=== PATIENT | male | born 1935 | race Hispanic/Latino ===

== ENCOUNTER 2020-06-30 09:09 | Day surgery (SDC) | payer MEDICARE ==
[2020-06-30] MEDS ORDERED: ASPIRIN EC 325 MG TAB PO SCH (10:30)
[2020-06-30 10:41] LABS: Basophils % (Auto) 0.5 % (0.0-1.8); Eosinophils # (Auto) 0.2 K/mm3 (0.0-0.4); Eosinophils % (Auto) 3.3 % (0.0-4.3); Hematocrit 36.4 % (35.5-45.6); Hemoglobin 12.2 gm/dl (11.8-15.2); Lymphocytes # (Auto) 0.6 K/mm3 (1.2-5.4); Lymphocytes % (Auto) 9.8 % (13.4-35.0); Mean Corpuscular HGB Conc 33 % (32-34); Mean Corpuscular Volume 89 fl (84-94); Monocytes # (Auto) 0.7 K/mm3 (0.0-0.8); Platelet Count 269 K/mm3 (140-440); Red Blood Count 4.08 M/mm3 (3.65-5.03); Red Cell Distribution Width 15.5 % (13.2-15.2)
[2020-06-30 10:52] LABS: INR 1.09 (0.87-1.13)
[2020-06-30 11:02] LABS: BUN/Creatinine Ratio 16; Blood Urea Nitrogen 16 mg/dL (9-20); Hemolysis Index 3
[2020-06-30] MEDS ORDERED: HEPARIN/NS 5000 UNIT/500ML 1,000 ML IR ONE (11:17)
[2020-06-30] MEDS: SODIUM CHLORIDE 0.9% 500 ML 500 ML IV SCH ×2 (11:17→11:49)
[2020-06-30] MEDS: MIDAZOLAM 2 MG/2 ML INJ ONE ×2 (11:47→12:02)
[2020-06-30] MEDS: fentaNYL 100 MCG/2 ML INJ ONE ×2 (11:47→12:02)
[2020-06-30] MEDS: LIDOCAINE (2%) 20 MG/1 ML VIAL 20 ML MDV INFILTRATI ONE ×2 (11:47→12:03)
[2020-06-30] MEDS: HEPARIN 10,000 UNITS/10 ML VIAL ONE ×2 (11:48→12:06)
[2020-06-30] MEDS: NITROGLYCERIN SYRINGE 3 ML ONE ×2 (11:49→12:06)
[2020-06-30] MEDS: VERAPAMIL 5 MG/2 ML INJ ONE ×2 (11:49→12:06)
--- NOTE | 2020-06-30 12:39 | Cardiac Catherization Report ---
REASON FOR PROCEDURE: Coronary artery disease, exertional chest pain and dyspnea, preoperative urological surgery. PROCEDURES: 1. Left heart catheterization. 2. Selective left and right coronary angiography. 3. Left ventricular angiography. 4. Sedation time start 12:02, end 12:21. DESCRIPTION OF PROCEDURE: The patient was prepped and draped in a sterile fashion after informed consent. The right radial cath site was prepped and draped after a negative Richard's test. The right radial artery was entered using Seldinger technique followed by placement of a 6-Stateless hydrophilic sheath. Routine radial cocktail was administered via the sheath. Selective left and right coronary angiography was performed using a #3.5 left Keiko and a #4 right Keiko. A pigtail catheter was used for left ventricular angiography. The catheters were removed, sheath removed and hemostasis achieved using a TR band. The patient was returned to the postprocedure unit in stable condition. There were no complications. FINDINGS: HEMODYNAMICS: Left ventricular end-diastolic pressure was 19, following coronary angiography. Ascending aortic pressure was 161/71. There was no significant pressure gradient on pullback across the aortic valve. CORONARY ANGIOGRAPHY: Left main coronary artery was free of significant disease. The left anterior descending artery contained a long segment of disease in its proximal to mid portion. There was a long, up to 80% stenosis extending to the origin of a large mid diagonal branch. Otherwise, there was also moderate to severe disease of the distal apical segment of the LAD. The circumflex artery was a large system, that contained mild luminal irregularities through its proximal, mid and distal segments. Notably, there was a 60-70% stenosis of a medium-sized sub-branch of the mid obtuse marginal. The right coronary artery was dominant. This vessel was completely occluded in its mid segment. This was a chronic total occlusion. There was collateralization of the distal right coronary segments from the left coronary system. There was moderate left ventricular systolic dysfunction, ejection fraction 35-40%. There was severe hypokinesis of the inferior wall. CONCLUSION: 1. Multivessel coronary artery disease as above. 2. Ischemic cardiomyopathy with moderate left ventricular systolic dysfunction, ejection fraction 35-40%. RECOMMENDATION: The patient will be recommended for CT surgical review of angiograms for further revascularization recommendations. JOB# [id number] CA/NTS
[2020-06-30] MEDS ORDERED: traMADol 50 MG TAB PO PRN (12:52)
[2020-06-30] MEDS ORDERED: HYDROcodone/ACETAMINOPHEN 5-325 MG TAB PO PRN (12:52)
[2020-06-30] MEDS ORDERED: SODIUM CHLORIDE 0.9% 1000 ML 1,000 ML IV SCH (13:00)
--- NOTE | 2020-06-30 13:07 | Discharge Summary ---
Short Stay Discharge Plan Activity: advance as tolerated Weight Bearing Status: Full Weight Bearing Diet: low fat, low cholesterol, low salt Wound: keep clean and dry Special Instructions: no heavy lifting (3 days) Follow up with: PRIMARY MD SUGAR [Primary Care Provider] - 7 Days ARON BRICENO MD [Staff Physician] - 7 Days
[2020-06-30 15:47] VITALS: BP 119/74
== END 2020-06-30 16:05 | disposition home or self-care (01) ==
LOC: CATHLABREC 09:09
PROVIDERS: ATTEND Internal Medicine Cardiovascular Disease
DX: I25.10 Atherosclerotic heart disease of native coronary artery without angina pectoris (principal); E03.9 Hypothyroidism, unspecified; I25.5 Ischemic cardiomyopathy; Z79.82 Long term (current) use of aspirin; Z79.899 Other long term (current) drug therapy; Z98.890 Other specified postprocedural states; Z98.41 Cataract extraction status, right eye; Z85.89 Personal history of malignant neoplasm of other organs and systems; Z87.442 Personal history of urinary calculi; Z87.440 Personal history of urinary (tract) infections; Z88.8 Allergy status to other drugs, medicaments and biological substances
CPT/HCPCS: 36415; 80048; 85025; 85610; 85730; 93005; 93458; 99156; C1894; J1644; J2250; J3010; J7040; Q9967

== ENCOUNTER 2020-07-12 07:33 | Inpatient (IN) | payer MEDICARE ==
[2020-07-12] MEDS: SODIUM CHLORIDE 0.9% 500 ML 500 ML IV SCH ×3 (08:41→11:47)
[2020-07-12 08:42] LABS: Basophils % (Auto) 0.5 % (0.0-1.8); Eosinophils # (Auto) 0.2 K/mm3 (0.0-0.4); Eosinophils % (Auto) 3.6 % (0.0-4.3); Hematocrit 35.5 % (35.5-45.6); Hemoglobin 11.9 gm/dl (11.8-15.2); Lymphocytes # (Auto) 0.8 K/mm3 (1.2-5.4); Lymphocytes % (Auto) 11.8 % (13.4-35.0); Mean Corpuscular HGB Conc 34 % (32-34); Mean Corpuscular Volume 89 fl (84-94); Monocytes # (Auto) 0.8 K/mm3 (0.0-0.8); Monocytes % (Auto) 11.9 % (0.0-7.3); Platelet Count 267 K/mm3 (140-440); Red Blood Count 4.01 M/mm3 (3.65-5.03); Red Cell Distribution Width 15.5 % (13.2-15.2)
[2020-07-12] MEDS: ASPIRIN 81 MG TAB CHEW PO SCH ×2 (08:42→15:39)
[2020-07-12 08:50] LABS: INR 0.99 (0.87-1.13)
[2020-07-12 08:51] LABS: Partial Thromboplastin Time 32.1 Sec. (24.2-36.6)
[2020-07-12 08:55] LABS: BUN/Creatinine Ratio 17; Blood Urea Nitrogen 17 mg/dL (9-20); Calcium 8.9 mg/dL (8.4-10.2); Hemolysis Index 1
[2020-07-12] MEDS: fentaNYL 100 MCG/2 ML INJ ONE ×3 (11:28→12:17)
[2020-07-12] MEDS: HEPARIN/NS 5000 UNIT/500ML 1,000 ML IR ONE ×2 (11:28→11:47)
[2020-07-12] MEDS: MIDAZOLAM 2 MG/2 ML INJ ONE ×3 (11:28→12:17)
[2020-07-12] MEDS: HEPARIN 10,000 UNITS/10 ML VIAL ONE ×4 (11:29→12:17)
[2020-07-12] MEDS: LIDOCAINE (2%) 20 MG/1 ML VIAL 20 ML MDV INFILTRATI ONE ×2 (11:29→11:49)
[2020-07-12] MEDS: VERAPAMIL 5 MG/2 ML INJ ONE ×2 (11:30→11:49)
[2020-07-12] MEDS: NITROGLYCERIN SYRINGE 3 ML ONE ×2 (11:31→11:48)
[2020-07-12] MEDS ORDERED: ATROPINE 0.1% (1 MG/10 ML) CARDIAC SYRINGE ONE (12:17)
[2020-07-12] MEDS ORDERED: SODIUM CHLORIDE 0.9% 1000 ML 1,000 ML IV SCH (12:45)
--- NOTE | 2020-07-12 12:49 | Event Note ---
Date: 07/12/20 Successful angioplasty of a complex, long, heavily calcified 80% stenosis of the proximal to mid LAD. We deployed serial 2.5 to 3.0 mm drug-eluting stents, excellent angiographic result. Patient will be admitted for overnight observation, anticipated discharge tomorrow morning.
[2020-07-12] MEDS ORDERED: CLOPIDOGREL 75 MG TAB ONE (12:50)
--- NOTE | 2020-07-12 13:17 | Cardiac Catherization Report ---
CORONARY ANGIOPLASTY REPORT REASON FOR PROCEDURE: The patient is an 84-year-old man with severe 2-vessel disease of the LAD and right coronary arteries. The right coronary artery was a chronic total occlusion and the LAD contains a long, calcified 80% stenosis of the proximal to mid segment. The patient was recommended for coronary artery bypass, but adamantly refuse, instead opted for limited revascularization with a complex coronary intervention to the LAD. In this scenario, his chronically occluded right coronary artery will be treated medically. PROCEDURES: 1. Coronary angioplasty and stenting of the proximal to mid left anterior descending. 2. Procedure start at 1144 hours, end at 1226 hours. The patient was prepped and draped in a sterile fashion after informed consent. The right radial cath site was prepped and draped after a negative Richard's test. The right radial artery was entered using Seldinger technique followed by placement of a 6-Uzbek hydrophilic sheath. Routine radial cocktail was administered via the sheath. We selected a 3.5 XB guiding catheter and advanced to the left coronary ostium. Pre-intervention angiograms were taken. A 0.014 inch Spider Assembler 50 guidewire was introduced into the LAD, across the lesional segment and the wire was placed in the distal vessel. Following this, another guidewire was placed into a mid diagonal branch that was located at the distal end of the lesional segment. Balloon angioplasty was then carried out over the LAD wire, with a 2.5 mm balloon and serial inflations within the lesional segment. We then deployed a 2.5 x 22 mm drug-eluting stent across the mid left anterior descending artery. Following this, a 3.0 x 8 mm stent was then overlapped with the proximal aspect of the first stent. Following the overlapping serial stents, there was an excellent angiographic result at the treated site in the proximal to mid LAD. The wires were then removed, and demonstrated patency of the mid diagonal branch. We did note a 75% distal LAD stenosis in its apical segment, but this was not intervened upon due to the small caliber nature of the vessel in its distal segment. Procedure was well tolerated by the patient and there were no complications. The catheters and the wires were removed, sheath removed, and hemostasis achieved using a TR band. The patient was returned to the postprocedure unit in stable condition. CONCLUSION: Successful angioplasty and stenting of the proximal to mid left anterior descending with successful deployment of 2.5-3.0 mm drug-eluting stents. JOB# [id number] RONN/ADRIANO
[2020-07-12] MEDS ORDERED: SODIUM CHLORIDE 0.9% 500 ML 500 ML ONE (14:54)
[2020-07-12] MEDS: METOPROLOL TARTRATE 25 MG TAB PO SCH (21:08)
[2020-07-13 06:05] LABS: Hematocrit 34.1 % (35.5-45.6); Hemoglobin 11.3 gm/dl (11.8-15.2); Mean Corpuscular HGB Conc 33 % (32-34); Mean Corpuscular Volume 91 fl (84-94); Platelet Count 240 K/mm3 (140-440); Red Blood Count 3.76 M/mm3 (3.65-5.03); Red Cell Distribution Width 15.4 % (13.2-15.2)
[2020-07-13 06:17] LABS: Creatine Kinase MB 2.3 ng/mL (0.0-4.0)
[2020-07-13 06:18] LABS: Calcium 8.7 mg/dL (8.4-10.2)
[2020-07-13 06:43] LABS: Chol/HDL Ratio 2.05 %
[2020-07-13 08:40] LABS: Basophils % (Manual) 0 % (0.0-1.8); Eosinophils % (Manual) 0 % (0.0-4.3); Total Cells Counted 100
[2020-07-13 08:52] LABS: Anisocytosis Few; Burr Cells Few; Platelet Estimate Consistent w Auto; Poikilocytosis Few; Target Cells Rare
--- NOTE | 2020-07-13 10:04 | Progress Note ---
Assessment and Plan CAD s/p PCI of the proximal to mid LAD using drug eluting stents on plavix and aspirin Ischemic cardiomyopathy, LVEF 35-40% Leukocytosis Will recheck a CBC. If this remains elevated, we will have Infectious disease evaluate further. Continue current medical therapy without interruption of plavix and aspirin. Subjective Date of service: 07/13/20 Interval history: Patient is resting in bed comfortably. He denies chest pain. Today's labs shows a WBC of 20.3, up from 7.0 on yesterday. Patient remains afebrile. Objective Vital Signs Temp Pulse Pulse Pulse Pulse Resp BP 07/13/20 08:18 97.9 F 70 16 96/71 07/13/20 04:43 98.0 F 68 18 93/54 07/13/20 00:40 19 07/13/20 00:22 98.0 F 69 18 94/59 07/12/20 19:15 98.0 F 65 18 85/57 07/12/20 18:10 66 94/61 07/12/20 18:03 66 07/12/20 17:55 66 97/57 07/12/20 17:00 65 93/62 07/12/20 15:54 61 88/66 07/12/20 15:50 86 86 86 19 07/12/20 15:47 67 101/68 07/12/20 15:00 68 14 109/78 07/12/20 14:30 64 15 124/82 07/12/20 14:18 59 L 188/95 07/12/20 14:00 60 15 142/95 07/12/20 13:45 64 14 191/95 07/12/20 13:30 64 13 188/95 07/12/20 13:15 58 L 13 142/88 07/12/20 13:00 59 L 20 149/88 07/12/20 12:49 97.5 F L 58 L 9 L 136/75 Pulse Ox 07/13/20 08:18 93 07/13/20 04:43 97 07/13/20 00:40 99 07/13/20 00:22 92 07/12/20 19:15 96 07/12/20 18:10 93 07/12/20 18:03 07/12/20 17:55 93 07/12/20 17:00 95 07/12/20 15:54 99 07/12/20 15:50 99 07/12/20 15:47 98 07/12/20 15:00 99 07/12/20 14:30 99 07/12/20 14:18 07/12/20 14:00 98 07/12/20 13:45 96 07/12/20 13:30 92 07/12/20 13:15 98 07/12/20 13:00 98 07/12/20 12:49 96 - Physical Examination General: No Apparent Distress HEENT: Positive: PERRL Neck: Positive: trachea midline Cardiac: Positive: Reg Rate and Rhythm Lungs: Positive: Decreased Breath Sounds Neuro: Positive: Grossly Intact Extremities: Absent: edema - Labs and Meds Cardiac Enzymes 07/13/20 Range/Units 04:49 CK-MB (CK-2) 2.3 (0.0-4.0) ng/mL Lipids 07/13/20 Range/Units 04:49 Triglycerides 42 (2-149) mg/dL Cholesterol 82 (50-199) mg/dL HDL Cholesterol 40 (40-59) mg/dL Cholesterol/HDL Ratio 2.05 % CBC 07/13/20 Range/Units 04:49 WBC 20.3 H (4.5-11.0) K/mm3 RBC 3.76 (3.65-5.03) M/mm3 Hgb 11.3 L (11.8-15.2) gm/dl Hct 34.1 L (35.5-45.6) % Plt Count 240 (140-440) K/mm3 Comprehensive Metabolic Panel 07/13/20 Range/Units 04:49 Sodium 139 (137-145) mmol/L Potassium 4.5 (3.6-5.0) mmol/L Chloride 101.8 (98-107) mmol/L Carbon Dioxide 22 D (22-30) mmol/L BUN 22 H (9-20) mg/dL Creatinine 1.3 (0.8-1.3) mg/dL Glucose 146 H (75-100) mg/dL Calcium 8.7 (8.4-10.2) mg/dL
[2020-07-13] MEDS: METOPROLOL TARTRATE 25 MG TAB PO SCH ×2 (10:26→21:33)
[2020-07-13] MEDS: ASPIRIN 81 MG TAB CHEW PO SCH (10:26)
[2020-07-13] MEDS: CLOPIDOGREL 75 MG TAB PO SCH (10:27)
--- NOTE | 2020-07-13 10:36 | XRay Report ---
CHEST 1 VIEW INDICATION: post pci. COMPARISON: None. FINDINGS: Support devices: None. Heart: Normal. Lungs/Pleura: No acute pulmonary or pleural findings. IMPRESSION: 1. No acute findings. Signer Name: Norman Sewell MD Signed: 07/13/2020 10:32 AM Workstation Name: [id number]
[2020-07-13 11:30] LABS: Hematocrit 34.4 % (35.5-45.6); Hemoglobin 11.7 gm/dl (11.8-15.2); Mean Corpuscular HGB Conc 34 % (32-34); Mean Corpuscular Volume 89 fl (84-94); Platelet Count 258 K/mm3 (140-440); Red Blood Count 3.85 M/mm3 (3.65-5.03); Red Cell Distribution Width 15.2 % (13.2-15.2)
[2020-07-13] MEDS: HYDROcodone/ACETAMINOPHEN 5-325 MG TAB PO PRN ×2 (12:18→18:25)
[2020-07-13 12:35] LABS: Anisocytosis Few; Basophils % (Manual) 0 % (0.0-1.8); Eosinophils % (Manual) 0 % (0.0-4.3); Poikilocytosis Few; Total Cells Counted 100
[2020-07-13 12:36] LABS: Platelet Estimate Consistent w Auto
--- NOTE | 2020-07-13 15:31 | Consultation ---
History of Present Illness - Reason for Consult Consult date: 07/13/20 Leukocytosis Requesting physician: ARON BRICENO - History of Present Illness 84 years old male with history of CAD and urinary retention self caths at home 3 times a week, came on 07/12/20 for outpatient coronary angioplasty and stent procedure. Patient reports some dizziness after procedure. Patient reports a chronic cough most recently with increased sputum production. Denies any dysuria, hematuria.patient underwent complex, long, heavy calcified 80% stenosis of the proximal to mid LAD. Status post stents placement with excellent angiographic result. Initial WBC 7000. No fever reported. Patient was kept overnight for observation. This morning repeat WBC 20.3. Noted creatinine from 1->1.3. Chest x-ray shows no cardiopulmonary changes. Review of Systems: positive in bold print General: fever, chills, malaise, dizziness Cutaneous: rash, pruritus Head: headaches or injury Eyes: changes in vision, eye pain, double vision Ears: ear pain, ear discharge, ringing or hearing loss Nose: nose bleeding, stuffiness Mouth & throat: bleeding gums, horseness, no dental problems, or swollen glands Neck: no pain, node enlargement/lumps, tyroid enlargement or tenderness Respiratory: SOB, cough, CARLSON, wheezing, sputum, hemoptysis, pleuritic chest pain Cardiovascular: chest pain, leg edema, cyanosis, CARLSON, orthopnea Musculoskeletal: edema, deformities, pain Gastrointestinal: nausea, vomiting, hematemesis, diarrhea, constipation, melena, bright red blood in stools, fecal incontinence, jaundice Genitourinary/Reproductive: frequent urination, dysuria, hematuria, incontinence Neurogical: seizures, headaches, weakness, paresthesias, loss of speech or vision; memory loss, vertigo, tremors, numbness Psychiatric: stable mood; excessive anxiety, sadness or moodiness Medications and Allergies Allergies Allergy/AdvReac Type Severity Reaction Status Date / Time onabotulinumtoxinA Allergy Angioedema Verified 09/18/15 11:00 [From Botox] Home Medications Medication Instructions Recorded Confirmed Last Taken Type Aspirin [Aspir-Low] 81 mg PO DAILY 08/05/18 07/12/20 07/11/20 History 81 mg AtorvaSTATin [Lipitor] 40 mg PO QHS #30 tab 08/05/18 07/12/20 07/11/20 Rx 40 mg ISOSORBIDE MONOnitrate [Imdur ER] 30 mg PO DAILY #30 tab.er.24h 08/05/18 07/12/20 07/11/20 Rx 30 mg Levothyroxine [Synthroid] 75 mcg PO QAM 08/05/18 07/12/20 07/11/20 History 45 mcg Clopidogrel [Plavix] 75 mg PO DAILY 07/12/20 07/12/20 07/11/20 History 75 mg Metoprolol [Lopressor TAB] 25 mg PO DAILY 07/12/20 07/12/20 07/11/20 History 25 mg Preservision Areds 2 Softgel 2 cap PO DAILY 07/12/20 07/12/20 07/11/20 History 2 Active Meds: Active Medications Hydrocodone Bitart/Acetaminophen ([place] 5/325) 1 each PO Q6H PRN PRN Reason: Pain, Moderate (4-6) Last Admin: 07/13/20 12:18 Dose: 1 each Documented by: Aspirin (Baby Aspirin) 81 mg PO QDAY [facility] Last Admin: 07/13/20 10:26 Dose: 81 mg Documented by: Atorvastatin Calcium (Lipitor) 40 mg PO QHS [facility] Last Admin: 07/12/20 21:08 Dose: 40 mg Documented by: Clopidogrel Bisulfate (Plavix) 75 mg PO QDAY [facility] Last Admin: 07/13/20 10:27 Dose: 75 mg Documented by: Levofloxacin/Dextrose (Levaquin 500mg/100ml) 500 mg in 100 mls @ 100 mls/hr IV Q24H [facility]; Protocol Last Admin: 07/13/20 14:58 Dose: 100 mls/hr Documented by: Isosorbide Mononitrate (Imdur) 30 mg PO QDAY [facility] Last Admin: 07/13/20 12:18 Dose: 30 mg Documented by: Metoprolol Tartrate (Metoprolol) 25 mg PO BID [facility] Last Admin: 07/13/20 10:26 Dose: 25 mg Documented by: Physical Examination - Constitutional Vitals: Vital Signs Temp Pulse Resp BP Pulse Ox 98.9 F 70 18 132/80 95 07/13/20 11:29 07/13/20 11:29 07/13/20 11:29 07/13/20 11:29 07/13/20 14:42 Temperature -Last 24 Hours Temperature 98.9 F Temperature 97.9 F Temperature 98.0 F Temperature 98.0 F Temperature 98.0 F Results - Labs CBC & Chem 7: 07/13/20 Unknown 07/13/20 04:49 Labs: Abnormal lab results 07/13/20 07/13/20 07/13/20 Range/Units 04:49 04:49 08:32 WBC 20.3 H (4.5-11.0) K/mm3 Hgb 11.3 L (11.8-15.2) gm/dl Hct 34.1 L (35.5-45.6) % RDW 15.4 H (13.2-15.2) % Seg Neuts % (Manual) 91.0 H (40.0-70.0) % Lymphocytes % (Manual) 5.0 L (13.4-35.0) % Seg Neutrophils # Man 18.5 H (1.8-7.7) K/mm3 Lymphocytes # (Manual) 1.0 L (1.2-5.4) K/mm3 Monocytes # (Manual) (0.0-0.8) K/mm3 BUN 22 H (9-20) mg/dL Glucose 146 H (75-100) mg/dL POC Glucose 136 H (70-105) Troponin T 0.084 H (0.00-0.029) ng/mL LDL Cholesterol Direct 43 L (50-130) mg/dL 07/13/20 07/13/20 Range/Units 11:42 Unknown WBC 21.8 H (4.5-11.0) K/mm3 Hgb 11.7 L (11.8-15.2) gm/dl Hct 34.4 L (35.5-45.6) % RDW (13.2-15.2) % Seg Neuts % (Manual) 92.0 H (40.0-70.0) % Lymphocytes % (Manual) 4.0 L (13.4-35.0) % Seg Neutrophils # Man 20.1 H (1.8-7.7) K/mm3 Lymphocytes # (Manual) 0.9 L (1.2-5.4) K/mm3 Monocytes # (Manual) 0.9 H (0.0-0.8) K/mm3 BUN (9-20) mg/dL Glucose (75-100) mg/dL POC Glucose 130 H (70-105) Troponin T (0.00-0.029) ng/mL LDL Cholesterol Direct (50-130) mg/dL Assessment and Plan Cultures: None Assessment: 84 years old male with history of CAD and urinary retention self caths at home 3 times a week, came on 07/12/20 for outpatient coronary angioplasty and stent procedure, then developed dizziness, hypotension and leukocytosis: #SIRS postprocedure: Not present on admission, noted mild hypotension, leukocytosis and increased creatinine; source unclear. Chest x-ray shows no infiltrates. DDx: local stent complications/TN, less likely bacteremia, other infections UTI/pneumonia. #CAD: Status post angioplasty/stents #Chronic cough: Never smoker, chest x-ray unremarkable. Recommendations: -Repeat chest x-ray PA and lateral -Obtain UA, urine culture and blood cultures -Stop Levaquin -Start cefepime 2 g IV every 12 hours -Start vancomycin with PK consult -Monitor H&H -Check CRP and procalcitonin Will follow. Shana Wang MD Infectious Diseases Body Design Checker [facility] ([facility]) M [phone] O [phone]
[2020-07-13] MEDS ORDERED: VANCOMYCIN PHARMACY TO DOSE IV SCH (16:00)
[2020-07-13 16:17] LABS: Bacteria,Urine 1+ /HPF (Negative); Bilirubin,Urine NEG (Negative); Blood,Urine SM (Negative); Color,Urine Yellow (Yellow); Mucus,Urine 3+ /HPF; Protein,Urine <15 mg/dL mg/dL (Negative)
[2020-07-13] MEDS: CEFEPIME/NS 2 GM/100 ML 2 GM/100 ML BAG IV SCH (16:49)
[2020-07-13] MEDS: VANCOMYCIN 1,250 MG in SODIUM CHLORIDE 0.9% 250ML 250 ML IV SCH (17:32)
[2020-07-14] MEDS: CEFEPIME/NS 2 GM/100 ML 2 GM/100 ML BAG IV SCH ×2 (06:05→16:39)
[2020-07-14 06:48] LABS: Basophils % (Auto) 0.1 % (0.0-1.8); Hematocrit 32.7 % (35.5-45.6); Hemoglobin 10.9 gm/dl (11.8-15.2); Lymphocytes # (Auto) 0.5 K/mm3 (1.2-5.4); Lymphocytes % (Auto) 3.4 % (13.4-35.0); Mean Corpuscular HGB Conc 33 % (32-34); Mean Corpuscular Volume 89 fl (84-94); Monocytes # (Auto) 1.5 K/mm3 (0.0-0.8); Monocytes % (Auto) 9.4 % (0.0-7.3); Platelet Count 229 K/mm3 (140-440); Red Blood Count 3.66 M/mm3 (3.65-5.03); Red Cell Distribution Width 15.5 % (13.2-15.2)
[2020-07-14 07:10] LABS: Calcium 8.8 mg/dL (8.4-10.2)
[2020-07-14] MEDS: CLOPIDOGREL 75 MG TAB PO SCH (09:29)
[2020-07-14] MEDS: ASPIRIN 81 MG TAB CHEW PO SCH (09:29)
[2020-07-14] MEDS: METOPROLOL TARTRATE 25 MG TAB PO SCH ×3 (09:29→21:01)
--- NOTE | 2020-07-14 10:15 | Progress Note ---
Assessment and Plan CAD s/p PCI of the proximal to mid LAD using drug eluting stents on plavix and aspirin Ischemic cardiomyopathy, LVEF 35-40% Leukocytosis remains afebrile Chronic urinary retention requiring routine self catheterization Continue current medical therapy including plavix and aspirin without interruption. Subjective Date of service: 07/14/20 Interval history: Patient is resting in bed comfortably. He denies chest pain. Objective Vital Signs Temp Pulse Resp BP Pulse Ox 07/14/20 09:29 67 144/85 07/14/20 08:18 94 07/14/20 07:19 98.6 F 67 20 144/85 91 07/14/20 04:29 98.0 F 64 18 105/59 81 L 07/13/20 23:05 98.0 F 72 18 109/62 94 07/13/20 22:00 94 07/13/20 19:45 98.0 F 72 18 115/80 96 07/13/20 18:44 98.0 F 71 19 118/69 89 07/13/20 18:00 70 07/13/20 15:00 20 99 07/13/20 14:42 95 07/13/20 11:29 98.9 F 70 18 132/80 97 07/13/20 10:26 71 125/79 - Physical Examination General: No Apparent Distress HEENT: Positive: PERRL Neck: Positive: trachea midline Cardiac: Positive: Reg Rate and Rhythm Lungs: Positive: Decreased Breath Sounds Neuro: Positive: Grossly Intact Extremities: Absent: edema - Labs and Meds CBC 07/13/20 07/14/20 Range/Units Unknown 06:08 WBC 21.8 H 16.1 H (4.5-11.0) K/mm3 RBC 3.85 3.66 (3.65-5.03) M/mm3 Hgb 11.7 L 10.9 L (11.8-15.2) gm/dl Hct 34.4 L 32.7 L (35.5-45.6) % Plt Count 258 229 (140-440) K/mm3 Lymph # (Auto) 0.5 L (1.2-5.4) K/mm3 [place] # (Auto) 1.5 H (0.0-0.8) K/mm3 Eos # (Auto) 0.0 (0.0-0.4) K/mm3 Baso # (Auto) 0.0 (0.0-0.1) K/mm3 Comprehensive Metabolic Panel 07/14/20 Range/Units 06:08 Sodium 133 L (137-145) mmol/L Potassium 4.8 (3.6-5.0) mmol/L Chloride 97.4 L (98-107) mmol/L Carbon Dioxide 24 (22-30) mmol/L BUN 33 H (9-20) mg/dL Creatinine 1.3 (0.8-1.3) mg/dL Glucose 106 H (75-100) mg/dL Calcium 8.8 (8.4-10.2) mg/dL
[2020-07-14] MEDS: HYDROcodone/ACETAMINOPHEN 5-325 MG TAB PO PRN ×2 (10:52→20:53)
--- NOTE | 2020-07-14 12:08 | Progress Note ---
Assessment and Plan Cultures: Blood culture pending Urine culture pending Assessment: 84 years old male with history of CAD and urinary retention self caths at home 3 times a week, came on 07/12/20 for outpatient coronary angiopla sty and stent procedure, then developed dizziness, hypotension and leukocytosis: #SIRS postprocedure: Blood pressure leukocytosis improving. Not present on admission, noted mild hypotension, leukocytosis and increased creatinine; source unclear. ?mild UTI. Chest x-ray shows no infiltrates. DDx: local stent complications/CT, less likely bacteremia, other infections UTI/pneumonia. MRSA PCR negative. CRP 8.9. Procalcitonin 0.2 not consistent with bacterial infection. #Pyuria versus mild UTI: Urine culture pending, patient self cath ? Should rule out retention #CAD: Status post angioplasty/stents #Chronic cough: Never smoker, chest x-ray unremarkable. ? Bronchitis versus aspiration pneumonia Recommendations: -Kidney/bladder ultrasound -Bladder scan evaluate for retention -Repeat chest x-ray PA and lateral today -still coughing productive -Follow-up urine culture and blood cultures -Continue cefepime 2 g IV every 12 hours -Continue vancomycin with PK consult, will stop vancomycin if blood culture negative for gram-positive cocci in 48 hours Will follow. Shana Wang MD Infectious Diseases Administrative Manager [facility], [place] ([facility]) M [phone] O [phone] Subjective Date of service: 07/14/20 Principal diagnosis: Leukocytosis Interval history: Patient feels better, denies any fever, chills, chest pain, reports productive cough. Objective - Exam Narrative Exam: General appearance: Alert in NAD Eyes: anicteric sclerae, moist conjunctivae; no lid-lag; PERRLA HENT: Atraumatic; oropharynx clear with moist mucous membranes and no oral thrush; normal hard and soft palate. Lungs: Scattered rhonchi CV: RRR no murmur Abdomen: Soft, non-tender; no masses or hepatosplenomegaly Extremities: no edema, no cyanosis Skin: No rash. Psych: No agitated Neuro: alert and oriented x 3. Moving all extermities - Constitutional Vitals: Vital Signs Temp Pulse Resp BP Pulse Ox 98.6 F 67 20 144/85 94 07/14/20 07:19 07/14/20 09:29 07/14/20 07:19 07/14/20 09:29 07/14/20 08:18 Temperature -Last 24 Hours Temperature 98.6 F Temperature 98.0 F Temperature 98.0 F Temperature 98.0 F Temperature 98.0 F - Labs CBC & Chem 7: 07/14/20 06:08 07/14/20 06:08 Labs: Abnormal lab results 07/13/20 07/13/20 07/13/20 Range/Units 11:42 16:28 17:03 WBC (4.5-11.0) K/mm3 Hgb (11.8-15.2) gm/dl Hct (35.5-45.6) % RDW (13.2-15.2) % Lymph % (Auto) (13.4-35.0) % [place] % (Auto) (0.0-7.3) % Lymph # (Auto) (1.2-5.4) K/mm3 [place] # (Auto) (0.0-0.8) K/mm3 Seg Neutrophils % (40.0-70.0) % Seg Neuts % (Manual) (40.0-70.0) % Lymphocytes % (Manual) (13.4-35.0) % Seg Neutrophils # (1.8-7.7) K/mm3 Seg Neutrophils # Man (1.8-7.7) K/mm3 Lymphocytes # (Manual) (1.2-5.4) K/mm3 Monocytes # (Manual) (0.0-0.8) K/mm3 Sodium (137-145) mmol/L Chloride (98-107) mmol/L BUN (9-20) mg/dL Glucose (75-100) mg/dL POC Glucose 130 H 131 H (70-105) C-Reactive Protein 8.40 H (0.00-1.30) mg/dL Ur Specific [place] (1.003-1.030) Urine WBC (Auto) (0.0-6.0) /HPF 07/13/20 07/13/20 07/13/20 Range/Units 21:04 Unknown Unknown WBC (4.5-11.0) K/mm3 Hgb (11.8-15.2) gm/dl Hct (35.5-45.6) % RDW (13.2-15.2) % Lymph % (Auto) (13.4-35.0) % [place] % (Auto) (0.0-7.3) % Lymph # (Auto) (1.2-5.4) K/mm3 [place] # (Auto) (0.0-0.8) K/mm3 Seg Neutrophils % (40.0-70.0) % Seg Neuts % (Manual) 92.0 H (40.0-70.0) % Lymphocytes % (Manual) 4.0 L (13.4-35.0) % Seg Neutrophils # (1.8-7.7) K/mm3 Seg Neutrophils # Man 20.1 H (1.8-7.7) K/mm3 Lymphocytes # (Manual) 0.9 L (1.2-5.4) K/mm3 Monocytes # (Manual) 0.9 H (0.0-0.8) K/mm3 Sodium (137-145) mmol/L Chloride (98-107) mmol/L BUN (9-20) mg/dL Glucose (75-100) mg/dL POC Glucose 117 H (70-105) C-Reactive Protein (0.00-1.30) mg/dL Ur Specific [place] 1.034 H (1.003-1.030) Urine WBC (Auto) 7.0 H (0.0-6.0) /HPF 07/14/20 07/14/20 Range/Units 06:08 06:08 WBC 16.1 H (4.5-11.0) K/mm3 Hgb 10.9 L (11.8-15.2) gm/dl Hct 32.7 L (35.5-45.6) % RDW 15.5 H (13.2-15.2) % Lymph % (Auto) 3.4 L (13.4-35.0) % [place] % (Auto) 9.4 H (0.0-7.3) % Lymph # (Auto) 0.5 L (1.2-5.4) K/mm3 [place] # (Auto) 1.5 H (0.0-0.8) K/mm3 Seg Neutrophils % 87.1 H (40.0-70.0) % Seg Neuts % (Manual) (40.0-70.0) % Lymphocytes % (Manual) (13.4-35.0) % Seg Neutrophils # 14.0 H (1.8-7.7) K/mm3 Seg Neutrophils # Man (1.8-7.7) K/mm3 Lymphocytes # (Manual) (1.2-5.4) K/mm3 Monocytes # (Manual) (0.0-0.8) K/mm3 Sodium 133 L (137-145) mmol/L Chloride 97.4 L (98-107) mmol/L BUN 33 H (9-20) mg/dL Glucose 106 H (75-100) mg/dL POC Glucose (70-105) C-Reactive Protein (0.00-1.30) mg/dL Ur Specific [place] (1.003-1.030) Urine WBC (Auto) (0.0-6.0) /HPF
--- NOTE | 2020-07-14 16:39 | XRay Report ---
CHEST 1 VIEW INDICATION / CLINICAL INFORMATION: Eval for aspiration pneumonia/HAP. COMPARISON: 07/13/2020 FINDINGS: SUPPORT DEVICES: None. HEART / MEDIASTINUM: Stable. LUNGS / PLEURA: There has developed parenchymal disease in the right lung base since yesterday's exam . There may also be some subtle parenchymal disease in the left lung base, retrocardiac region. Upper lung marlow are clear. No significant pleural effusion. No pneumothorax. ADDITIONAL FINDINGS: No significant additional findings. IMPRESSION: 1. Interval development of right basilar parenchymal disease most likely pneumonia. 2. Questionable left basilar parenchymal disease as well. Signer Name: Izabela France MD Signed: 07/14/2020 4:34 PM Workstation Name: [id number]
[2020-07-14] MEDS: VANCOMYCIN 1,250 MG in SODIUM CHLORIDE 0.9% 250ML 250 ML IV SCH (18:06)
[2020-07-15] MEDS: CEFEPIME/NS 2 GM/100 ML 2 GM/100 ML BAG IV SCH ×2 (05:41→16:10)
--- NOTE | 2020-07-15 07:52 | Progress Note ---
Assessment and Plan CAD s/p PCI of the proximal to mid LAD using drug eluting stents this admission. 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 Continue current medical therapy including plavix and aspirin without interruption. DC planning once cleared by ID. Subjective Date of service: 07/15/20 Principal diagnosis: Leukocytosis Interval history: No complaints doing well. Objective Vital Signs Temp Pulse Resp BP Pulse Ox 07/15/20 07:35 92 07/15/20 03:43 98.0 F 62 18 124/71 91 07/15/20 02:00 70 07/14/20 23:54 97.7 F 65 16 118/68 93 07/14/20 22:00 20 07/14/20 19:24 97.3 F L 64 16 125/69 95 07/14/20 16:17 98.3 F 70 20 124/71 95 07/14/20 12:11 97.8 F 64 20 98/62 95 07/14/20 10:00 76 07/14/20 09:29 67 144/85 07/14/20 08:18 94 - Physical Examination Narrative exam: General: No Apparent Distress appears tired and weak HEENT: NAD Neck: neck supple Cardiac: S1-S2 heard faint 2/6 systolic murmur Lungs: Normal basilar breath sounds heard Neuro: Grossly Intact Abdomen: Soft Extremities: No edema noted General: No Apparent Distress HEENT: Positive: PERRL Neck: Positive: trachea midline Neuro: Positive: Grossly Intact Extremities: Absent: edema
[2020-07-15] MEDS: CLOPIDOGREL 75 MG TAB PO SCH (09:31)
[2020-07-15] MEDS: ASPIRIN 81 MG TAB CHEW PO SCH (09:31)
[2020-07-15] MEDS: METOPROLOL TARTRATE 25 MG TAB PO SCH ×2 (09:31→21:35)
--- NOTE | 2020-07-15 10:47 | Progress Note ---
Assessment and Plan Cultures: 07/13/2020 blood culture gram-positive cocci 1 out of 4 07/10/2020 urine culture 10-100,000 colonies usual skin tulio Assessment: 84 years old male with history of CAD and urinary retention self caths at home 3 times a week, came on 07/12/20 for outpatient coronary angioplasty and stent procedure, then developed dizziness, hypotension and leukocytosis: #SIRS postprocedure: Blood pressure leukocytosis improving. Not present on admission, noted mild hypotension, leukocytosis and increased creatinine; source unclear. ?mild UTI ? Bacteremia ? Pneumonia. Chest x-ray shows no infiltrates. Repeat chest x-ray right basilar consolidation. MRSA PCR negative. CRP 8.9. Procalcitonin 0.2 not consistent with bacterial infection. #Gram-positive cocci in blood cultures: 1 out of 4 bottles, likely a contaminant however will cover for now #Right-sided pneumonia: ? Aspiration #Pyuria versus mild UTI: Urine culture pending, patient self cath ? Should rule out retention #CAD: Status post angioplasty/stents Recommendations: -Follow-up initial blood cultures now with gram-positive cocci 1 out of 4 -Repeat blood cultures -Continue cefepime 2 g IV every 12 hours to cover pneumonia -Continue vancomycin with PK consult for now to cover possible bact eremia/pneumonia -Check MRSA PCR I will be covering the weekend, Dr. Kohler will be rounding on Saturday Will follow. Shana Wang MD Infectious Diseases [facility], [place], [facility] ([facility]) M [phone] O [phone] Subjective Principal diagnosis: Leukocytosis Objective - Constitutional Vitals: Vital Signs Temp Pulse Resp BP Pulse Ox 98.3 F 67 18 164/88 93 07/15/20 08:18 07/15/20 08:18 07/15/20 08:18 07/15/20 08:18 07/15/20 08:18 Temperature -Last 24 Hours Temperature 98.3 F Temperature 98.0 F Temperature 97.7 F Temperature 97.3 F Temperature 98.3 F Temperature 97.8 F - Labs CBC & Chem 7: 07/14/20 06:08 07/14/20 06:08 Labs: Abnormal lab results 07/14/20 Range/Units 12:27 POC Glucose 151 H (70-105)
[2020-07-16] MEDS: CEFEPIME/NS 2 GM/100 ML 2 GM/100 ML BAG IV SCH ×2 (05:37→17:58)
[2020-07-16 06:04] LABS: Basophils % (Auto) 0.2 % (0.0-1.8); Eosinophils # (Auto) 0.1 K/mm3 (0.0-0.4); Eosinophils % (Auto) 0.5 % (0.0-4.3); Hemoglobin 10.9 gm/dl (11.8-15.2); Lymphocytes # (Auto) 0.7 K/mm3 (1.2-5.4); Lymphocytes % (Auto) 5.4 % (13.4-35.0); Mean Corpuscular HGB Conc 34 % (32-34); Mean Corpuscular Volume 89 fl (84-94); Monocytes # (Auto) 1.3 K/mm3 (0.0-0.8); Monocytes % (Auto) 10.9 % (0.0-7.3); Platelet Count 248 K/mm3 (140-440); Red Blood Count 3.59 M/mm3 (3.65-5.03); Red Cell Distribution Width 15.4 % (13.2-15.2)
[2020-07-16 06:27] LABS: BUN/Creatinine Ratio 21; Blood Urea Nitrogen 19 mg/dL (9-20); Calcium 8.3 mg/dL (8.4-10.2); Hemolysis Index 1
[2020-07-16] MEDS: ASPIRIN 81 MG TAB CHEW PO SCH (10:14)
[2020-07-16] MEDS: METOPROLOL TARTRATE 25 MG TAB PO SCH ×2 (10:14→21:18)
[2020-07-16] MEDS: CLOPIDOGREL 75 MG TAB PO SCH (10:14)
--- NOTE | 2020-07-16 11:47 | Progress Note ---
Subjective Date of service: 07/16/20 Principal diagnosis: Leukocytosis Interval history: Assessment and Plan CAD s/p PCI of the proximal to mid LAD using drug eluting stents this admission. 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 Continue current medical therapy including plavix and aspirin without in terruption. DC planning once cleared by ID. Objective Vital Signs Temp Pulse Resp BP BP Pulse Ox 07/16/20 10:14 65 07/16/20 08:52 98.3 F 54 L 20 141/71 96 07/16/20 04:16 98.2 F 63 18 135/72 94 07/16/20 02:00 66 07/15/20 23:40 98.1 F 61 16 105/64 96 07/15/20 22:01 95 07/15/20 20:31 18 07/15/20 19:49 98.6 F 66 16 123/76 96 07/15/20 16:17 97.9 F 18 125/76 07/15/20 14:14 101/66 - Physical Examination General: No Apparent Distress HEENT: Positive: PERRL Neck: Positive: trachea midline Cardiac: Positive: Reg Rate and Rhythm, S1/S2 Lungs: Positive: Normal Exam Neuro: Positive: Grossly Intact Abdomen: Positive: Soft Extremities: Absent: edema - Labs and Meds CBC 07/16/20 Range/Units 05:24 WBC 12.2 H (4.5-11.0) K/mm3 RBC 3.59 L (3.65-5.03) M/mm3 Hgb 10.9 L (11.8-15.2) gm/dl Hct 32.0 L (35.5-45.6) % Plt Count 248 (140-440) K/mm3 Lymph # (Auto) 0.7 L (1.2-5.4) K/mm3 Pershing # (Auto) 1.3 H (0.0-0.8) K/mm3 Eos # (Auto) 0.1 (0.0-0.4) K/mm3 Baso # (Auto) 0.0 (0.0-0.1) K/mm3 Comprehensive Metabolic Panel 07/16/20 Range/Units 05:24 Sodium 137 (137-145) mmol/L Potassium 4.0 (3.6-5.0) mmol/L Chloride 101.1 (98-107) mmol/L Carbon Dioxide 25 (22-30) mmol/L BUN 19 (9-20) mg/dL Creatinine 0.9 (0.8-1.3) mg/dL Glucose 93 (75-100) mg/dL Calcium 8.3 L (8.4-10.2) mg/dL
[2020-07-17] MEDS: CEFEPIME/NS 2 GM/100 ML 2 GM/100 ML BAG IV SCH (05:43)
[2020-07-17 06:41] LABS: BUN/Creatinine Ratio 21; Blood Urea Nitrogen 19 mg/dL (9-20); Calcium 8.4 mg/dL (8.4-10.2); Hemolysis Index 10
[2020-07-17] MEDS: METOPROLOL TARTRATE 25 MG TAB PO SCH ×2 (09:27→22:39)
[2020-07-17] MEDS: ASPIRIN 81 MG TAB CHEW PO SCH (09:27)
[2020-07-17] MEDS: CLOPIDOGREL 75 MG TAB PO SCH (09:28)
--- NOTE | 2020-07-17 09:33 | Progress Note ---
Assessment and Plan Cultures: 07/13/2020 blood culture gram-positive cocci 1 out of 4 07/10/2020 urine culture 10-100,000 colonies usual skin tulio 07/15/2020 blood cultures no growth today MRSA PCR negative Assessment: 84 years old male with history of CAD and urinary retention self caths at home 3 times a week, came on 07/12/20 for outpatient coronary angioplasty and stent procedure, then developed dizziness, hypotension and le ukocytosis: #SIRS postprocedure: Resolved. Not present on admission, noted mild hypotension, leukocytosis and increased creatinine; source unclear. ?mild UTI ? Pneumonia. Chest x-ray shows no infiltrates. Repeat chest x-ray right basilar consolidation. MRSA PCR negative. CRP 8.9. Procalcitonin 0.2 not consistent with bacterial infection. #Coagulase-negative in blood cultures: 1 out of 4 bottles, likely a contaminant, repeat blood cultures negative. #Right-sided pneumonia: ? Aspiration #Pyuria versus mild UTI: Urine culture pending, patient self cath ? Should rule out retention #CAD: Status post angioplasty/stents Recommendations: -Okay to discharge from ID standpoint -Stop cefepime and vancomycin -Start Levaquin 750 mg p.o. for 2 more days to cover UTI and pneumonia. Shana Wang MD Infectious Diseases Regulation Supervisor [facility] ([facility]) M [phone] O [phone] Subjective Date of service: 07/17/20 Principal diagnosis: Leukocytosis Interval history: Patient is feeling better, continues with cough, productive, no fever Objective - Exam Narrative Exam: General appearance: Alert in NAD Eyes: anicteric sclerae, moist conjunctivae; no lid-lag; PERRLA HENT: Atraumatic; oropharynx clear Lungs: Scattered rhonchi CV: RRR no murmur Abdomen: Soft, non-tender; no masses or hepatosplenomegaly Extremities: no edema, no cyanosis Skin: No rash. Psych: No agitated Neuro: alert and oriented x 3. Moving all extermities - Constitutional Vitals: Vital Signs Temp Pulse Resp BP Pulse Ox 98.0 F 77 20 117/68 96 07/17/20 07:38 07/17/20 09:28 07/17/20 07:38 07/17/20 07:38 07/17/20 07:38 Temperature -Last 24 Hours Temperature 98.0 F Temperature 97.5 F Temperature 97.8 F Temperature 97.7 F Temperature 97.3 F - Labs CBC & Chem 7: 07/16/20 05:24 07/17/20 05:04
--- NOTE | 2020-07-17 10:02 | Progress Note ---
Subjective Date of service: 07/17/20 Principal diagnosis: Leukocytosis Interval history: Assessment and Plan CAD s/p PCI of the proximal to mid LAD using drug eluting stents this admission. 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 Continue current medical therapy including plavix and aspirin without in terruption. Ok to discharge per Cardiology standpoint. Objective Vital Signs Temp Pulse Resp BP Pulse Ox 07/17/20 09:28 77 07/17/20 09:27 77 07/17/20 07:38 98.0 F 65 20 117/68 96 07/17/20 03:22 97.5 F L 70 16 106/60 95 07/17/20 02:00 86 07/16/20 23:53 97.8 F 61 16 123/77 96 07/16/20 20:21 20 07/16/20 19:16 97.7 F 102 H 16 144/94 96 07/16/20 18:00 66 07/16/20 15:29 97.3 F L 63 20 127/78 96 07/16/20 10:14 65 - Physical Examination General: No Apparent Distress HEENT: Positive: PERRL Neck: Positive: trachea midline Cardiac: Positive: Reg Rate and Rhythm, S1/S2 Lungs: Positive: Normal Exam Neuro: Positive: Grossly Intact Abdomen: Positive: Soft Extremities: Absent: edema - Labs and Meds Comprehensive Metabolic Panel 07/17/20 Range/Units 05:04 Sodium 138 (137-145) mmol/L Potassium 4.2 (3.6-5.0) mmol/L Chloride 101.4 (98-107) mmol/L Carbon Dioxide 27 (22-30) mmol/L BUN 19 (9-20) mg/dL Creatinine 0.9 (0.8-1.3) mg/dL Glucose 91 (75-100) mg/dL Calcium 8.4 (8.4-10.2) mg/dL
[2020-07-17] MEDS: levoFLOXacin 750 MG TAB PO SCH (16:11)
[2020-07-17] MEDS: ZOLPIDEM 5 MG TAB PO PRN (22:39)
[2020-07-18 05:53] LABS: BUN/Creatinine Ratio 21; Blood Urea Nitrogen 19 mg/dL (9-20); Calcium 8.4 mg/dL (8.4-10.2); Hemolysis Index 0
[2020-07-18] MEDS: ASPIRIN 81 MG TAB CHEW PO SCH (10:13)
[2020-07-18] MEDS: CLOPIDOGREL 75 MG TAB PO SCH (10:13)
[2020-07-18] MEDS: levoFLOXacin 750 MG TAB PO SCH (10:13)
[2020-07-18] MEDS: METOPROLOL TARTRATE 25 MG TAB PO SCH ×2 (10:13→21:48)
--- NOTE | 2020-07-18 11:50 | Progress Note ---
Assessment and Plan Cultures: 07/13/2020 blood culture gram-positive cocci 1 out of 4 07/10/2020 urine culture 10-100,000 colonies usual skin tulio 07/15/2020 blood cultures no growth today MRSA PCR negative Assessment: 84 years old male with history of CAD and urinary retention self caths at home 3 times a week, came on 07/12/20 for outpatient coronary angioplasty and stent procedure, then developed dizziness, hypotension and leukocytosis: #SIRS postprocedure: Resolved. Not present on admission, noted mild hyp otension, leukocytosis and increased creatinine; source unclear. ?mild UTI ? Pneumonia. Chest x-ray shows no infiltrates. Repeat chest x-ray right basilar consolidation. MRSA PCR negative. CRP 8.9. Procalcitonin 0.2 not consistent with bacterial infection. Completed abx. #Coagulase-negative in blood cultures: 1 out of 4 bottles, likely a contaminant, repeat blood cultures negative. #Right-sided pneumonia: completed abx. On room air. #Pyuria versus mild UTI: patient self caths for many years, follows up with urology as outpatient. Recommendations: Completed antibiotics Continue outpatient follow up with Dr. Hurtado (urology) We will sign off. Please call with questions. Sujit Kohler MD, FACP [facility] ([facility]) C: [phone] O: [phone] F: [phone] Subjective Date of service: 07/18/20 Principal diagnosis: Leukocytosis Interval history: No fever. Reports mild cough. Patient says he has been doing self caths for many years, sees Dr. Hurtado from Urology. Denies any urinary burning. Objective - Exam Narrative Exam: Physical Exam: Constitutional: Alert, cooperative. No acute distress Head, Ears, Nose: Normocephalic, atraumatic. External ears, nose normal Eyes: Conjunctivae/corneas clear. No icterus. No ptosis. Neck: Supple, no meningeal signs Cardiovascular: S1, S2 normal. Respiratory: Good air entry, clear to auscultation bilaterally GI: Soft, non-tender; bowel sounds normal. No peritoneal signs Musculoskeletal: No pedal edema, no cyanosis. Skin: No rash or abscess Hem/Lymphatic: No palpable cervical or supraclavicular nodes. No lymphangitis Psych: Mood ok. Affect normal Neurological: Awake, alert, oriented. No gross abnormality - Constitutional Vitals: Vital Signs Temp Pulse Resp BP Pulse Ox 97.9 F 69 17 137/69 99 07/18/20 07:45 07/18/20 10:13 07/18/20 10:00 07/18/20 10:13 07/18/20 10:00 Temperature -Last 24 Hours Temperature 97.9 F Temperature 98.4 F Temperature 97.9 F Temperature 98.4 F Temperature 98.2 F - Labs CBC & Chem 7: 07/16/20 05:24 07/18/20 05:06 Labs: Abnormal lab results 07/18/20 Range/Units 05:06 Sodium 131 L D (137-145) mmol/L Chloride 95.2 L (98-107) mmol/L
--- NOTE | 2020-07-18 11:51 | Progress Note ---
Assessment and Plan CAD s/p PCI of the proximal to mid LAD using drug eluting stents on plavix and aspirin Ischemic cardiomyopathy, LVEF 35-40% Leukocytosis remains afebrile Chronic urinary retention requiring routine self catheterization Continue current medical therapy including plavix and aspirin without interruption. Discharge planning in the next 24hrs. Subjective Date of service: 07/18/20 Principal diagnosis: Leukocytosis Interval history: Patient is resting in bed and appears comfortable. Denies chest pain. Denies coughs. Home health is being arranged by case management. Objective Vital Signs Temp Pulse Pulse Pulse Pulse Resp BP 07/18/20 10:13 69 137/69 07/18/20 10:12 69 137/69 07/18/20 10:00 66 66 66 66 17 07/18/20 07:45 97.9 F 61 20 154/80 07/18/20 05:02 54 L 16 134/76 07/18/20 02:00 78 07/17/20 23:38 98.4 F 58 L 16 107/58 07/17/20 22:39 61 145/80 07/17/20 22:00 20 07/17/20 21:28 97.9 F 61 16 145/80 07/17/20 18:00 74 07/17/20 15:34 98.4 F 64 20 103/57 07/17/20 12:02 98.2 F 58 L 20 101/57 Pulse Ox 07/18/20 10:13 07/18/20 10:12 07/18/20 10:00 99 07/18/20 07:45 96 07/18/20 05:02 95 07/18/20 02:00 07/17/20 23:38 96 07/17/20 22:39 07/17/20 22:00 07/17/20 21:28 97 07/17/20 18:00 07/17/20 15:34 97 07/17/20 12:02 95 - Physical Examination General: No Apparent Distress HEENT: Positive: PERRL Neck: Positive: trachea midline Cardiac: Positive: Reg Rate and Rhythm Lungs: Positive: Decreased Breath Sounds Neuro: Positive: Grossly Intact Extremities: Absent: edema - Labs and Meds Comprehensive Metabolic Panel 07/18/20 Range/Units 05:06 Sodium 131 L D (137-145) mmol/L Potassium 4.1 (3.6-5.0) mmol/L Chloride 95.2 L (98-107) mmol/L Carbon Dioxide 27 (22-30) mmol/L BUN 19 (9-20) mg/dL Creatinine 0.9 (0.8-1.3) mg/dL Glucose 94 (75-100) mg/dL Calcium 8.4 (8.4-10.2) mg/dL
[2020-07-18] MEDS: ZOLPIDEM 5 MG TAB PO PRN (21:48)
--- NOTE | 2020-07-19 09:03 | Discharge Summary ---
Providers - Providers Date of Admission: 07/13/20 11:46 Date of discharge: 07/19/20 Attending physician: TERE BRICENO 07/12/20 Consult to Cardiac Rehabilitation [CONS] Routine Reason For Exam: post pci 07/13/20 11:44 Consult to Physician [CONS] Routine Comment: Consulting Provider: ADELFO COATES Physician Instructions: Reason For Exam: Leukocytosis Primary care physician: HUMAN DEVELOPMENT PROFESSOR Hospitalization Condition: Good Hospital course: The patient underwent an outpatient coronary angioplasty and stent procedure of the LAD, admitted overnight for observation. He had no further chest pain. However, he developed a severe leukocytosis with a white count of 20,000. White count preprocedure was 7,000. There was no fever. Patient has a history of chronic urinary retention requiring self catheterization but had no urinary complaints. His initial chest x-ray was unremarkable but a follow up chest x-ray showed right basilar consolidation. Patient was evaluated by Infectious Disease. Initial blood cultures grew coagulase-negative staph, 1 out of 4 bottles. Patient was placed on a course on antibiotics. Repeat blood cultures were negative. White count has improved to 12,000. Patient will discharge home today with home health services. He will maintain medical management for coronary artery disease and follow up in our office in 3- 5 days. Disposition: [id number]/[place]-06 HOME UNDER HOME [facility] Core Measure Documentation - Palliative Care Palliative Care/ Comfort Measures: Not Applicable - Core Measures Any of the following diagnoses?: none Exam - Constitutional Vitals: Temp Pulse Resp BP Pulse Ox 97.7 F 60 18 129/62 95 07/19/20 03:55 07/19/20 03:55 07/19/20 03:55 07/19/20 03:55 07/19/20 03:55 General appearance: Present: no acute distress - EENT Eyes: Present: PERRL ENT: hearing intact - Neck Neck: Present: normal ROM - Respiratory Respiratory effort: normal - Cardiovascular Rhythm: regular - Psychiatric Psychiatric: appropriate mood/affect Plan Activity: advance as tolerated Diet: low fat, low cholesterol, low salt Follow up with: PRIMARY CARE, [Primary Care Provider] - 7 Days
[2020-07-19 09:58] VITALS: BP 150/76
[2020-07-19] MEDS: ASPIRIN 81 MG TAB CHEW PO SCH (10:37)
[2020-07-19] MEDS: CLOPIDOGREL 75 MG TAB PO SCH (10:37)
[2020-07-19] MEDS: METOPROLOL TARTRATE 25 MG TAB PO SCH (10:38)
[2020-07-19 11:42] LABS: Hematocrit 36.1 % (35.5-45.6); Hemoglobin 11.6 gm/dl (11.8-15.2); Mean Corpuscular HGB Conc 32 % (32-34); Mean Corpuscular Volume 88 fl (84-94); Platelet Count 396 K/mm3 (140-440); Red Blood Count 4.09 M/mm3 (3.65-5.03); Red Cell Distribution Width 15.3 % (13.2-15.2)
[2020-07-19 12:00] LABS: BUN/Creatinine Ratio 19; Blood Urea Nitrogen 19 mg/dL (9-20); Calcium 8.9 mg/dL (8.4-10.2); Hemolysis Index 5
[2020-07-19 12:43] LABS: Anisocytosis 1+; Band Neutrophils # (Manual) 0.1 K/mm3; Basophils % (Manual) 0 % (0.0-1.8); Eosinophils % (Manual) 0 % (0.0-4.3); Poikilocytosis 1+; Total Cells Counted 100
[2020-07-19 12:44] LABS: Burr Cells Few; Hypersegmented Neutrophils Rare; Large Platelets Few; Platelet Estimate Consistent w Auto
== END 2020-07-19 17:20 | disposition home health service (06) | DRG 246 ==
LOC: CATHLABREC 07:33 → 4A 11:46 → OBSVTOIN 07-13 11:46
PROVIDERS: ADMIT Internal Medicine Cardiovascular Disease; ATTEND Internal Medicine Cardiovascular Disease
PROC: 4A023N7 Measurement of Cardiac Sampling and Pressure, Left Heart, Percutaneous Approach (ICD-10-PCS; principal; 2020-07-12)
PROC: 027035Z Dilation of Coronary Artery, One Artery with Two Drug-eluting Intraluminal Devices, Percutaneous Approach (ICD-10-PCS; 2020-07-12)
PROC: B2111ZZ Fluoroscopy of Multiple Coronary Arteries using Low Osmolar Contrast (ICD-10-PCS; 2020-07-12)
PROC: B2151ZZ Fluoroscopy of Left Heart using Low Osmolar Contrast (ICD-10-PCS; 2020-07-12)
DX: I25.10 Atherosclerotic heart disease of native coronary artery without angina pectoris (principal); J18.9 Pneumonia, unspecified organism; R65.10 Systemic inflammatory response syndrome (SIRS) of non-infectious origin without acute organ dysfunction; I25.5 Ischemic cardiomyopathy; I95.9 Hypotension, unspecified; R05 Cough; R33.9 Retention of urine, unspecified
CPT/HCPCS: 36415; 71045; 80048; 80061; 81001; 82550; 82553; 82962; 84145; 84484; 85007; 85025; 85610; 85730; 86140; 87040; 87086; 87641; 92928; 93005; G0378; A9270-GY; C1725; C1769; C1874; C1887; C1894; C9600; J0461; J0692; J1644; J1956; J2250; J3010; J3370; J7030; J7040; J7050; Q9967